=== PATIENT | female | born 1950 | race Asian ===

== ENCOUNTER 2020-02-10 22:12 | Emergency (ER) | payer MEDICARE, OTHER ==
[~2020-02-10] VITALS: Ht 157.5 cm; Wt 49.9 kg
[2020-02-11] MEDS ORDERED: ATIVAN0.5 MG (01:04)
== END 2020-02-11 01:20 | disposition home or self-care (01) ==
LOC: ER 22:12 → EDSEX 22:12 → ER 02-11 01:20
DX: F41.0 Panic disorder [episodic paroxysmal anxiety] (principal)
CPT/HCPCS: 96374; 99283; J2060